=== PATIENT | female | born 2000 | race Caucasian/White ===

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

== ENCOUNTER 2019-01-11 16:50 | Outpatient (REF) | payer MEDICAID, SELFPAY ==
[2019-01-13 12:41] LABS: Chlamydia Result Negative (Negative); GC Result Negative (Negative); Specimen Description CERVIX
== END 2019-01-11 17:10 ==
LOC: LBN 16:50
PROVIDERS: PCP Nurse Practitioner Family; Visit Provider Nurse Practitioner Women's Health
DX: Z11.3 Encounter for screening for infections with a predominantly sexual mode of transmission (principal)
CPT/HCPCS: 87491; 87591

== ENCOUNTER 2019-10-02 13:51 | Outpatient (REF) | payer MEDICAID, SELFPAY ==
[2019-10-02 17:29] LABS: HCT 39.9 % (36.0-46.0); HGB 13.3 g/dL (12.0-15.5); Mean Corp. HGB Concentration 33.3 g/dL (32.0-36.0); Mean Corpuscular Hemoglobin 30.9 pg (27.0-33.0); Mean Corpuscular Volume 92.8 fL (80-95); Mean Platelet Volume 9.6 fL (8.0-11.0); Platelet Count 364 x1000/uL (130-400); RBC Distribution Width 12.5 % (11.7-14.6); White Blood Cell Count 5.21 k/cumm (4.4-10.8)
[2019-10-02 17:45] LABS: Iron 139 ug/dL (50-170); Total Iron Binding Capacity 237 ug/dL (250-450); Transferrin Sat 59 % (15-50)
[2019-10-02 18:09] LABS: Vitamin D 25 Total 28.4 ng/ml (30-100)
[2019-10-02 18:12] LABS: TSH (W/Ref FT4) 1.29 uIU/mL (0.36-3.74); Vitamin B12 440 pg/mL (193-986)
== END 2019-10-02 14:11 ==
LOC: NCHCN 13:51
PROVIDERS: PCP Nurse Practitioner Family; Visit Provider Nurse Practitioner
DX: Z86.2 Personal history of diseases of the blood and blood-forming organs and certain disorders involving the immune mechanism (principal); Z13.21 Encounter for screening for nutritional disorder; Z13.29 Encounter for screening for other suspected endocrine disorder
CPT/HCPCS: 82306; 85027; 82607; 83540; 83550; 84443

== ENCOUNTER 2019-10-18 18:30 | Outpatient (REF) | payer MEDICAID, SELFPAY | END 2019-10-18 18:50 | LOC: LBN 18:30 | PROVIDERS: PCP Nurse Practitioner Family; Visit Provider Nurse Practitioner Women's Health | DX: R30.0 Dysuria (principal) | CPT/HCPCS: 87086; 87480; 87510; 87660 ==

== ENCOUNTER 2020-01-29 16:44 | Outpatient (REF) | payer MEDICAID, SELFPAY ==
[2020-02-03 21:20] LABS: Patient Race White; SARS-CoV-2 RNA Undetected (Undetected); SARS-CoV-2 Specimen Source Nasal
== END 2020-01-29 17:04 ==
LOC: NCHCN 16:44
PROVIDERS: PCP Nurse Practitioner Family; Visit Provider Nurse Practitioner Family
DX: J02.9 Acute pharyngitis, unspecified (principal)
CPT/HCPCS: U0003

== ENCOUNTER 2020-03-27 15:41 | Outpatient (REF) | payer MEDICAID, SELFPAY ==
--- NOTE | 2020-03-27 13:30 | PAPFT_PTH ---
PATIENT: Zoey Gunn LOC: [facility] U#:[id number] AGE/SX: 20/F ROOM: RE03/27/[address]: Dorinda Zamudio NP : 2000 BED: DIS: 03/27/2020 SPEC #: [id number] RECD: 03/27/20 18:25 STATUS: JIMMY FINE #: [id number] BURAK: 03/27/20 13:[address]: Dorinda Zamudio NP DEPT: [facility] Cytology RECD BY: Beatrice White ENTERED: 03/27/20 18:25 SP TYPE: PAPFT OTHR DR: Eusebia Perez Tissues: 1 - CX/ENDOCX FOR PAP SMEARS Procedures: PAP THIN PREP/UVM Screening Comments: [id number] (CHLAMYDIA/GC)
[2020-03-29 07:12] LABS: Chlamydia Result Negative (Negative); GC Result Negative (Negative)
== END 2020-03-27 16:01 ==
LOC: LBN 15:41
PROVIDERS: PCP Nurse Practitioner Family; Visit Provider Nurse Practitioner Women's Health
DX: Z11.3 Encounter for screening for infections with a predominantly sexual mode of transmission (principal); Z12.4 Encounter for screening for malignant neoplasm of cervix
CPT/HCPCS: 87491; 87591; 88142

== ENCOUNTER 2021-04-10 01:57 | Outpatient (CLI) | payer MEDICAID, SELFPAY ==
[2021-04-10 13:02] LABS: Abs Immature Grans 0.02 10^3/uL (0.0-0.06); Absolute Basophil Count 0.03 10^3/uL (0.0-0.2); Absolute Eosinophil Count 0.11 10^3/uL (0.0-0.7); Absolute Lymphocyte Count 1.96 10^3/uL (1.2-3.4); Absolute Monocyte Count 0.54 10^3/uL (0.1-0.8); Absolute Neutrophil Count 6.85 10^3/uL (1.2-6.7); Basophils % 0.3; Eosinophils % 1.2; HCT 40.9 % (36.0-46.0); HGB 13.4 g/dL (11.2-15.7); Immature Grans % 0.2; Lymphocytes % 20.6; MCH 30.1 pg (27.0-33.0); MCHC 32.8 % (32.0-36.0); MCV 91.9 fL (80-95); MPV 8.6 fL (8.0-11.0); Monocytes % 5.7; Nucleated RBC 0 %; Platelet Count 393 10^3/uL (130-400); RBC 4.45 10^6/uL (3.93-5.22); RDW 12.1 % (11.7-14.6); RDW-SD 41.1 fL; WBC 9.51 10^3/uL (4.4-10.8)
[2021-04-10 14:26] LABS: ALT 13 U/L (14-59); AST 11 U/L (15-37); Albumin 4.4 g/dL (3.4-5.0); Alkaline Phosphatase 80 U/L (46-116); Bilirubin, Direct 0.2 mg/dL (0.0-0.2); Bilirubin, Total 0.5 mg/dL (0.2-1.0); C-Reactive Protein 0.11 mg/dL (0.0-0.3); Total Protein 7.5 g/dL (6.4-8.2)
== END 2021-04-10 01:58 | disposition home or self-care (01) ==
LOC: LBO 01:57
PROVIDERS: PCP Nurse Practitioner Family; Visit Provider Internal Medicine Gastroenterology
DX: K50.90 Crohn's disease, unspecified, without complications (principal)
CPT/HCPCS: 36415; 80076; 85025; 86140

== ENCOUNTER 2021-08-05 17:28 | Outpatient (REF) | payer MEDICAID, SELFPAY ==
[2021-08-05 19:23] LABS: HCT 40.1 % (36.0-46.0); HGB 12.9 g/dL (11.2-15.7); MCHC 32.2 % (32.0-36.0); MCV 96 fL (80-95); MPV 9.4 fL (8.0-11.0); Platelet Count 327 10^3/uL (130-400); RBC 4.16 10^6/uL (3.93-5.22); RDW 12.1 % (11.7-14.6); RDW-SD 43.2 fL; WBC 8.19 10^3/uL (4.4-10.8)
[2021-08-05 19:31] LABS: Iron 147 ug/dL (50-170); Total Iron Binding Capacity 258 ug/dL (250-450); Transferrin Sat 57 % (15-50)
== END 2021-08-05 17:29 | disposition home or self-care (01) ==
LOC: NCHCN 17:28
PROVIDERS: PCP Nurse Practitioner Family; Visit Provider Nurse Practitioner Family
DX: Z86.2 Personal history of diseases of the blood and blood-forming organs and certain disorders involving the immune mechanism
CPT/HCPCS: 85027; 83540; 83550

== ENCOUNTER 2021-12-07 22:39 | Emergency (ER) | payer MEDICAID, SELFPAY ==
[2021-12-07 22:43] VITALS: BP 130/78; PULSE 110; RESP 18; TEMP 36.7; O2SAT 100
[2021-12-07 23:06] LABS: Bilirubin Negative (Negative); Blood Negative (Negative); Clarity Clear (Clear); Glucose Negative (Negative); Ketones 40 mg/dL (Negative); Leukocyte Esterase Negative (Negative); Nitrite Negative (Negative); Urobilinogen 0.2 EU/dL (Up TO 0.2); pH 8.5 (5-8)
--- NOTE | 2021-12-07 23:07 | ED.GENADUL_ITS ---
Discharge Plan Disposition Patient Disposition: HOME Condition: Improving Discharge Details Chief Complaint: Nausea/Vomit/Diar Clinical Impression: Nausea & vomiting Primary Care Provider: Eusebia Perez ED Provider: Federico Giron Home Meds and New Rx's Prescriptions: No Action ascorbate calcium (vitamin C) 500 mg tablet 500 mg PO DAILY calcium carb-mag oxide-zinc ox 1 EACH tablet 1 ea PO DAILY melatonin 3 MG tablet 3 mg PO HS montelukast [Singulair] 10 MG tablet 10 mg PO DAILY albuterol sulfate [ProAir HFA] 8.5 GM HFA aerosol inhaler 2 puff Inhalation Q4H PRN fluticasone propionate [Flonase Allergy Relief] 9.9 ML spray,suspension 9.9 ml NS PRN PRN azathioprine [Imuran] 50 mg tablet 150 mg PO DAILY Zyrtec 10 mg capsule 10 mg PO DAILY Discharge Instructions Instructions: Acute Nausea and Vomiting (ED) Additional Instructions: Please take medications as needed. Please follow-up with your primary care physician within the next week. Please return to the emergency department for any worsening symptoms. Medical Decision Making 21-year-old female history of Crohn's disease, presents with nausea vomiting in the setting of drinking heavily last night had multiple shots approximately 10; abdomen soft nontender nondistended afebrile nontoxic however appears uncomfortable, denies lower GI symptomatology or symptoms. Likely component of hangover and gastritis versus mild pancreatitis lower suspicion for appendicitis or cholecystitis, less likely Crohn's flare given history and physical. Will obtain basic labs, fluids antiemetics H2 ashleigh, GI cocktail. Close reassessment disposition likely home pending result 12: 43 patient resting comfortably feeling much better after meds and fluids. No current vomiting tolerating p.o. Home care instructions and return precautions given HPI General Date/Time Provider Initiated Documentation: 12/07/21 22:39 . HPI Narrative: 21-year-old female history of Crohn's disease presents with nausea vomiting over the past several hours, endorses heavy drinking last night had approximately 10 shots of liquor. Denies any diarrhea or urinary symptoms. Endorses that this is different than her Crohn's flares in the past. Related Data Home Medications Medication Instructions Recorded Confirmed albuterol sulfate 90 mcg/actuation 2 puff inhalation Q4H PRN 10/13/17 12/07/21 aerosol inhaler (ProAir HFA) calcium carbonate 334 mg-magnesium 1 ea PO DAILY 10/13/17 12/07/21 oxide 134 mg-zinc oxide 5 mg tablet fluticasone propionate 50 9.9 ml NS PRN PRN 10/13/17 12/07/21 mcg/actuation nasal spray,suspension (Flonase Allergy Relief) melatonin 3 mg tablet 3 mg PO HS 10/13/17 12/07/21 montelukast 10 mg tablet 10 mg PO DAILY 10/13/17 12/07/21 (Singulair) azathioprine 50 mg tablet (Imuran) 150 mg PO DAILY 07/01/18 12/07/21 ascorbate calcium (vitamin C) 500 500 mg PO DAILY 03/27/20 12/07/21 mg tablet cetirizine 10 mg capsule (Zyrtec) 10 mg PO DAILY 08/27/20 12/07/21 Allergies Allergy/AdvReac Type Severity Reaction Status Date / Time No Known Allergies Allergy Verified 12/07/21 22:53 General Stated Complaint: Nausea/Vomit/Diar LADI: 3 Review of Systems Narrative: Review of Systems Constitutional: negative Eyes: negative ENT: negative Cardiovascular: negative Respiratory: negative Gastrointestinal: Abdominal pain nausea vomiting : negative Musculoskeletal: negative Skin: negative Neurologic: negative Psych: negative PFSH All Active Problems (Updated 12/08/21 @ 00:44 by Federico Giron MD) Nausea & vomiting (Acute) Contraception (Acute) Natural family planning/condoms Crohn's disease (Chronic) Medical History Crohns disease managed by PCP Presence of Subdermal Contraceptive Implant (02/07/20) Family History Mother No problems noted. Father No problems noted. Brother No problems noted. Brother No problems noted. Grandmother Diabetes Other Thyroid disease Social History Smoking/Tobacco Use Status: Never Smoking risk assessment performed?: Yes Alcohol Intake: current Alcohol Intake frequency: a few times a month Drug use: Occasionally Substance use type: marijuana Details: before bed Do you feel safe at home: Yes Do you feel safe in your relationship?: Yes Female Reproductive History Menstrual control method: implanted History History 0 Para Hx # Term Pregnancies Multiple births Hx # Pregnancies Ectopic pregnancies AB induced Hx Number of Living Children AB spontaneous Exam Narrative Exam Narrative: Physical Examination General: alert, awake, cooperative, resting comfortably, no acute distress HEENT: normocephalic, atraumatic; PERRL, EOM intact, conjunctiva normal; no nasal discharge; moist mucous membranes, oral and pharyngeal mucosa normal, tolerating secretions Neck: supple, trachea midline; full ROM Chest: normal to inspection Respiratory: normal respiratory effort, speaking in full sentences, clear to auscultation, no wheezing, rales or rhonchi Cardiac: Tachycardia, regular rhythm, S1S2 intact, no murmurs rubs or gallops GI: abdomen soft, non-tender, non-distended; no palpable mass or hepatosplenomegaly Skin: no lesions, rashes or trauma appreciated Neuro: AAOx3, normal speech, moving all extremities Psych: Appropriate mood and affect Course Vital Signs Vital signs: Vital Signs Temperature 36.7 C 12/07/21 22:43 Pulse 110 H 12/07/21 22:43 Respiratory Rate 18 12/07/21 22:43 Blood Pressure 130/78 12/07/21 22:43 Pulse Oximetry 100 12/07/21 22:43 Temperature 36.7 C 12/07/21 22:43 Temperature Source Oral 12/07/21 22:43 Pulse 110 H 12/07/21 22:43 Respiratory Rate 18 12/07/21 22:43 Respiratory Effort 12/07/21 22:49 Blood Pressure 130/78 12/07/21 22:43 Blood Pressure Position Supine 12/07/21 22:43 Pulse Oximetry 100 12/07/21 22:43 Oxygen Delivery Method Room Air 12/07/21 22:43 Oxygen Flow Rate 0 12/07/21 22:43 Comment 12/07/21 22:43 PAWSS Have you Been Recently Intoxicated or Drunk Within the Last 30 days?: Yes Have you Ever Experienced Previous Episodes of Alcohol Withdrawal?: No Have you ever Experienced Withdrawal Seizures?: No Have you ever Experienced Delirium Tremens(DT)s?: No Have you ever undergone Alcohol Rehabilitation Treatment (i.e, inpt ot outpatient treatment programs)?: No Have you ever Experienced Blackouts?: Yes Have you ever Combined Alcohol with other Downers within the last 90 days?: No Have you ever Combined Alcohol with any other Substance of Abuse during the last 90 days?: No Positive Blood Alcohol level on Presentation? [PCS.BAL]: No Evidence of Increased Autonomic Activity (i.e. HR>120, tremor, sweating, agitation, nausea)?: No Result: 2
[2021-12-07 23:13] LABS: Abs Immature Grans 0.06 10^3/uL (0.0-0.06); Absolute Basophil Count 0.03 10^3/uL (0.0-0.2); Basophils % 0.2; Eosinophils % 0.1; HCT 42.1 % (36.0-46.0); Immature Grans % 0.4; Lymphocytes % 7.2; MCH 30.1 pg (27.0-33.0); MCHC 33.3 % (32.0-36.0); MCV 91 fL (80-95); MPV 8.8 fL (8.0-11.0); Monocytes % 2.4; Neutrophils % 89.7; Platelet Count 353 10^3/uL (130-400); RBC 4.65 10^6/uL (3.93-5.22); RDW 11.4 % (11.7-14.6); RDW-SD 38.2 fL; WBC 16.73 10^3/uL (4.4-10.8)
[2021-12-07] MEDS: Famotidine 20 MG/2 ML VIAL IVP (23:14)
[2021-12-07 23:15] LABS: Epithelial Cells Moderate HPF (Negative); RBC 0-2 HPF (0-2); WBC 0-2 HPF (0-5)
[2021-12-07 23:15] LABS: Absolute Eosinophil Count 0.02 10^3/uL (0.0-0.7); Absolute Neutrophil Count 15.01 10^3/uL (1.2-6.7)
[2021-12-07 23:16] LABS: Bacteria Few HPF (Negative); C & S Indicated? No; Crystals Negative HPF (Negative); Mucus Heavy (Negative)
[2021-12-07] MEDS: Ondansetron 4 MG/2 ML VIAL IVP (23:17)
[2021-12-07] MEDS: Normal Saline 1,000 ML 1000 ML IV (23:24)
[2021-12-07 23:33] LABS: ALT 17 U/L (14-59); AST 15 U/L (15-37); Albumin 4.9 g/dL (3.4-5.0); Alkaline Phosphatase 88 U/L (46-116); Anion Gap 14.1 mmol/L (3-11); BUN 11 mg/dL (7-18); Bilirubin, Total 0.9 mg/dL (0.2-1.0); CO2 24.9 mmol/L (21.0-32.0); CREATININE 0.8 mg/dL (0.55-1.02); Calcium 9.8 mg/dL (8.5-10.1); Chloride 99 mmol/L (98-107); Estimated GFR 106.77 (mL/min/1.73m2); Glucose 96 mg/dL (74-106); Lipase 75 U/L (73-393); Potassium 3.5 mmol/L (3.5-5.1); Sodium 138 mmol/L (136-145); Total Protein 8.8 g/dL (6.4-8.2)
[2021-12-08] MEDS: Mylanta Suspension 30 ML CUP PO (00:29)
[2021-12-08] MEDS: Lidocaine 2% Viscous 15 ML CUP PO (00:29)
== END 2021-12-08 00:48 | disposition home or self-care (01) ==
PROVIDERS: Emergency Provider Emergency Medicine; PCP Nurse Practitioner Family
DX: R11.2 Nausea with vomiting, unspecified (principal); R19.7 Diarrhea, unspecified
CPT/HCPCS: 80053; 81025; 83690; 96361; 96374; 96375; 99284; 81003; 81015; 85025; J2405

== ENCOUNTER 2022-10-23 15:22 | Outpatient (REF) | payer MEDICAID, SELFPAY ==
[2022-10-23 18:39] LABS: Abs Immature Grans 0.02 10^3/uL (0.0-0.06); Absolute Basophil Count 0.02 10^3/uL (0.0-0.2); Absolute Eosinophil Count 0.09 10^3/uL (0.0-0.7); Absolute Lymphocyte Count 1.18 10^3/uL (1.2-3.4); Absolute Monocyte Count 0.34 10^3/uL (0.1-0.8); Absolute Neutrophil Count 4.33 10^3/uL (1.2-6.7); Basophils % 0.3; Eosinophils % 1.5; HCT 35.1 % (36.0-46.0); HGB 11.4 g/dL (11.2-15.7); Immature Grans % 0.3; Lymphocytes % 19.7; MCHC 32.5 % (32.0-36.0); MCV 92 fL (80-95); MPV 9.5 fL (8.0-11.0); Monocytes % 5.7; Neutrophils % 72.5; Platelet Count 353 10^3/uL (130-400); RDW 13.2 % (11.7-14.6); RDW-SD 44.6 fL; WBC 5.98 10^3/uL (4.4-10.8)
[2022-10-23 19:06] LABS: Iron 54 ug/dL (50-170); Total Iron Binding Capacity 302 ug/dL (250-450); Transferrin Sat 18 % (15-50)
[2022-10-23 19:11] LABS: ALT 13 U/L (14-59); AST 12 U/L (15-37); Albumin 4.2 g/dL (3.4-5.0); Alkaline Phosphatase 68 U/L (46-116); Anion Gap 11.5 mmol/L (3-11); BUN 8 mg/dL (7-18); Bilirubin, Total 0.8 mg/dL (0.2-1.0); CO2 24.5 mmol/L (21.0-32.0); CREATININE 0.6 mg/dL (0.55-1.02); Calcium 8.8 mg/dL (8.5-10.1); Chloride 104 mmol/L (98-107); Estimated GFR 129.27 (mL/min/1.73m2); Glucose 91 mg/dL (74-106); Sodium 140 mmol/L (136-145); TSH (W/Ref FT4) 0.79 uIU/mL (0.36-3.74); Total Protein 7.6 g/dL (6.4-8.2)
== END 2022-10-23 15:23 | disposition home or self-care (01) ==
LOC: NCHCN 15:22
PROVIDERS: PCP Nurse Practitioner Family; Visit Provider Nurse Practitioner Family
DX: F41.8 Other specified anxiety disorders (principal); R42 Dizziness and giddiness; Z86.2 Personal history of diseases of the blood and blood-forming organs and certain disorders involving the immune mechanism
CPT/HCPCS: 80053; 83540; 83550; 84443; 85025

== ENCOUNTER 2022-10-28 14:07 | Outpatient (REF) | payer MEDICAID, SELFPAY ==
[2022-10-28 20:45] LABS: Bilirubin Negative (Negative); Blood Moderate (Negative); Clarity Sl Cloudy (Clear); Glucose Negative (Negative); Ketones Negative (Negative); Leukocyte Esterase Large (Negative); Nitrite Positive (Negative); Urobilinogen 0.2 mg/dL (Up to 0.2); pH 7.5 (5-8)
[2022-10-28 22:19] LABS: WBC >50 HPF (0-5)
[2022-10-28 22:20] LABS: Bacteria Many HPF (Negative); C & S Indicated? No/Sq. Contamination; Crystals Negative HPF (Negative); Epithelial Cells Many HPF (Negative); Mucus Negative (Negative); Other Cells Few Transitional (Negative)
== END 2022-10-28 14:08 | disposition home or self-care (01) ==
LOC: LBN 14:07
PROVIDERS: PCP Nurse Practitioner Family; Visit Provider Nurse Practitioner Family
DX: N39.9 Disorder of urinary system, unspecified (principal)
CPT/HCPCS: 81003; 81015

== ENCOUNTER 2022-11-24 15:28 | Outpatient (CLI) | payer MEDICAID, SELFPAY ==
[2022-11-24 17:27] LABS: TSH (W/Ref FT4) 0.98 uIU/mL (0.36-3.74)
[2022-11-24 22:08] LABS: FSH 6.6 mIU/mL (See Note); Prolactin 10.8 ng/mL (See Note)
== END 2022-11-24 15:29 | disposition home or self-care (01) ==
LOC: LBO 15:28
PROVIDERS: PCP Nurse Practitioner Family; Visit Provider Nurse Practitioner Women's Health
DX: N91.2 Amenorrhea, unspecified (principal)
CPT/HCPCS: 36415; 83001; 84146; 84443

== ENCOUNTER 2022-12-31 15:08 | Outpatient (REF) | payer MEDICAID, SELFPAY ==
[2022-12-31 16:16] LABS: Abs Immature Grans 0.01 10^3/uL (0.0-0.06); Absolute Basophil Count 0.03 10^3/uL (0.0-0.2); Absolute Eosinophil Count 0.08 10^3/uL (0.0-0.7); Absolute Lymphocyte Count 1.41 10^3/uL (1.2-3.4); Absolute Monocyte Count 0.24 10^3/uL (0.1-0.8); Absolute Neutrophil Count 3.16 10^3/uL (1.2-6.7); Basophils % 0.6; Eosinophils % 1.6; HCT 35.8 % (36.0-46.0); HGB 11.3 g/dL (11.2-15.7); Immature Grans % 0.2; Lymphocytes % 28.6; MCHC 31.6 % (32.0-36.0); MCV 95 fL (80-95); MPV 9.3 fL (8.0-11.0); Monocytes % 4.9; Neutrophils % 64.1; Platelet Count 386 10^3/uL (130-400); RBC 3.77 10^6/uL (3.93-5.22); RDW 13.7 % (11.7-14.6); WBC 4.93 10^3/uL (4.4-10.8)
[2022-12-31 16:41] LABS: ALT 12 U/L (14-59); AST 10 U/L (15-37); Albumin 4.5 g/dL (3.4-5.0); Alkaline Phosphatase 56 U/L (46-116); Anion Gap 10.8 mmol/L (3-11); BUN 9 mg/dL (7-18); Bilirubin, Total 0.5 mg/dL (0.2-1.0); C-Reactive Protein 0.12 mg/dL (0.0-0.3); CO2 23.2 mmol/L (21.0-32.0); CREATININE 0.6 mg/dL (0.55-1.02); Calcium 9.9 mg/dL (8.5-10.1); Chloride 104 mmol/L (98-107); Estimated GFR 129.27 (mL/min/1.73m2); Glucose 79 mg/dL (74-106); Potassium 4.6 mmol/L (3.5-5.1); Sodium 138 mmol/L (136-145); Total Protein 7.8 g/dL (6.4-8.2)
[2023-01-05 08:36] LABS: 6-Thioguanine Nucleotides 200 (235 - 450)
== END 2022-12-31 15:09 | disposition home or self-care (01) ==
LOC: NCHCN 15:08
PROVIDERS: PCP Nurse Practitioner Family; Visit Provider Nurse Practitioner Family
DX: K50.80 Crohn's disease of both small and large intestine without complications (principal); Z79.899 Other long term (current) drug therapy
CPT/HCPCS: 80053; 80299; 85025; 86140

== ENCOUNTER 2023-02-04 11:25 | Outpatient (RCR) | payer MEDICAID, SELFPAY ==
--- NOTE | 2023-02-04 12:00 | HOLTER_ITS ---
APPROVED REPORT Conclusion The 48-hour Holter monitor ordered for palpitations Rhythm throughout was sinus with an average heart rate of 86. Minimum was 64, maximum 137 There were 3 isolated premature ventricular contractions There was 1 atrial premature beat There was no atrial fibrillation, no SVT, no high-grade AV block, no pauses greater than 3 seconds Patient symptoms were reported which had no correlation to any dysrhythmia
== END 2023-02-18 23:59 | disposition home or self-care (01) ==
LOC: CARDOPNVT 11:25
PROVIDERS: PCP Nurse Practitioner Family; Visit Provider Nurse Practitioner Family
DX: R00.2 Palpitations (principal)
CPT/HCPCS: 93225; 93226

== ENCOUNTER 2023-04-01 18:12 | Outpatient (REF) | payer MEDICAID, SELFPAY ==
--- NOTE | 2023-04-01 13:15 | PAPFT_PTH ---
PATIENT: Zoey Gunn LOC: [facility] U#:[id number] AGE/SX: 23/F ROOM: RE04/01/[address]: SHRADDHA CONNOLLY : 2000 BED: DIS: 04/01/2023 SPEC #: [id number] RECD: 04/01/23 18:26 STATUS: JIMMY REQ #: [id number] BURAK: 04/01/23 13:[address]: Shraddha Connolly DEPT: [facility] Cytology RECD BY: Beatrice White Tissues: 1 - CX/ENDOCX FOR PAP SMEARS Procedures: PAP THIN PREP/[facility] Screening Comments: [id number] (CHLAMYDIA/GC)
[2023-04-02 14:57] LABS: Chlamydia Result Negative (Negative); GC Result Negative (Negative)
== END 2023-04-01 18:13 | disposition home or self-care (01) ==
LOC: NCHCN 18:12
PROVIDERS: PCP Nurse Practitioner Family; Visit Provider Nurse Practitioner Family
DX: Z00.00 Encounter for general adult medical examination without abnormal findings (principal); Z12.4 Encounter for screening for malignant neoplasm of cervix; Z11.51 Encounter for screening for human papillomavirus (HPV)
CPT/HCPCS: 87491; 87591; 88142

== ENCOUNTER 2023-12-09 03:09 | Outpatient (CLI) | payer MEDICAID, SELFPAY ==
[2023-12-09 15:22] LABS: Abs Immature Grans 0.01 10^3/uL (0.0-0.06); Absolute Basophil Count 0.02 10^3/uL (0.0-0.2); Absolute Eosinophil Count 0.07 10^3/uL (0.0-0.7); Absolute Lymphocyte Count 1.37 10^3/uL (1.2-3.4); Absolute Neutrophil Count 5.22 10^3/uL (1.2-6.7); Basophils % 0.3 %; HCT 37.4 % (36.0-46.0); HGB 12.5 g/dL (11.2-15.7); Immature Grans % 0.1 %; Lymphocytes % 19.6 %; MCH 32.3 pg (27.0-33.0); MCHC 33.4 % (32.0-36.0); MCV 97 fL (80-95); MPV 8.7 fL (8.0-11.0); Monocytes % 4.3 %; Neutrophils % 74.7 %; Platelet Count 268 10^3/uL (130-400); RBC 3.87 10^6/uL (3.93-5.22); RDW 11.9 % (11.7-14.6); RDW-SD 41.9 fL; WBC 6.99 10^3/uL (4.4-10.8)
[2023-12-09 16:38] LABS: ALT 12 U/L (14-59); AST 16 U/L (15-37); Albumin 3.6 g/dL (3.4-5.0); Alkaline Phosphatase 57 U/L (46-116); Anion Gap 7.7 mmol/L (3-11); BUN 9 mg/dL (7-18); Bilirubin, Total 0.42 mg/dL (0.2-1.0); CO2 26.3 mmol/L (21.0-32.0); CREATININE 0.8 mg/dL (0.55-1.02); Calcium 8.8 mg/dL (8.5-10.1); Chloride 104 mmol/L (98-107); Estimated GFR 105.45 (mL/min/1.73m2); Glucose 87 mg/dL (74-106); Potassium 3.7 mmol/L (3.5-5.1); Sodium 138 mmol/L (136-145); Total Protein 7.7 g/dL (6.4-8.2)
[2023-12-09 16:43] LABS: C-Reactive Protein < 0.50 mg/dL (<or=0.5)
[2023-12-13 11:54] LABS: Tissue Transglutaminase IgA <4.0 CU (<20.0)
[2023-12-14 11:03] LABS: 6-Thioguanine Nucleotides 129 (235 - 450)
== END 2023-12-09 03:10 | disposition home or self-care (01) ==
PROVIDERS: Visit Provider Internal Medicine Gastroenterology
DX: K52.9 Noninfective gastroenteritis and colitis, unspecified (principal)
CPT/HCPCS: 36415; 80053; 80299; 85025; 86140

== ENCOUNTER 2024-06-21 12:10 | Outpatient (CLI) | payer MEDICAID, SELFPAY ==
[2024-06-21 12:41] LABS: Abs Immature Grans 0.03 10^3/uL (0.0-0.06); Absolute Basophil Count 0.02 10^3/uL (0.0-0.2); Absolute Eosinophil Count 0.07 10^3/uL (0.0-0.7); Absolute Lymphocyte Count 1.91 10^3/uL (1.2-3.4); Absolute Monocyte Count 0.38 10^3/uL (0.1-0.8); Absolute Neutrophil Count 4.84 10^3/uL (1.2-6.7); Basophils % 0.3 %; HCT 38.2 % (36.0-46.0); HGB 12.5 g/dL (11.2-15.7); Immature Grans % 0.4 %; Lymphocytes % 26.3 %; MCH 30.7 pg (27.0-33.0); MCHC 32.7 % (32.0-36.0); MCV 94 fL (80-95); MPV 8.8 fL (8.0-11.0); Monocytes % 5.2 %; Neutrophils % 66.8 %; Platelet Count 292 10^3/uL (130-400); RBC 4.07 10^6/uL (3.93-5.22); RDW 13.2 % (11.7-14.6); RDW-SD 45.5 fL; WBC 7.25 10^3/uL (4.4-10.8)
[2024-06-21 12:50] LABS: ALT 16 U/L (14-59); AST 13 U/L (15-37); Albumin 3.7 g/dL (3.4-5.0); Alkaline Phosphatase 61 U/L (46-116); Anion Gap 11.4 mmol/L (3-11); BUN 10 mg/dL (7-18); Bilirubin, Total 0.4 mg/dL (0.2-1.0); CO2 24.6 mmol/L (21.0-32.0); CREATININE 0.8 mg/dL (0.55-1.02); Chloride 104 mmol/L (98-107); Glucose 88 mg/dL (74-106); Potassium 3.7 mmol/L (3.5-5.1); Sodium 140 mmol/L (136-145); Total Protein 7.1 g/dL (6.4-8.2)
[2024-06-21 12:51] LABS: C-Reactive Protein < 0.50 mg/dL (<or=0.5)
== END 2024-06-21 12:11 | disposition home or self-care (01) ==
LOC: LBO 12:10
PROVIDERS: Visit Provider Internal Medicine Gastroenterology
DX: K52.9 Noninfective gastroenteritis and colitis, unspecified (principal)
CPT/HCPCS: 36415; 80053; 85025; 86140

== ENCOUNTER 2024-06-21 12:19 | Outpatient (REF) | payer MEDICAID, SELFPAY ==
[2024-06-22 11:56] LABS: Chlamydia Result Negative (Negative); GC Result Negative (Negative)
== END 2024-06-21 12:20 | disposition home or self-care (01) ==
LOC: LBN 12:19
PROVIDERS: Visit Provider Nurse Practitioner Women's Health
DX: Z11.3 Encounter for screening for infections with a predominantly sexual mode of transmission (principal); Z30.41 Encounter for surveillance of contraceptive pills; Z01.419 Encounter for gynecological examination (general) (routine) without abnormal findings
CPT/HCPCS: 87491; 87591

== ENCOUNTER 2024-07-06 12:52 | Outpatient (REF) | payer MEDICAID, SELFPAY ==
[2024-07-06 19:48] LABS: Iron 42 ug/dL (50-170); Total Iron Binding Capacity 360 ug/dL (250-450); Transferrin Sat 12 % (15-50)
[2024-07-06 20:10] LABS: Ferritin 15 ng/mL (8-252); Folate 4.3 ng/mL (8.6-20.0); TSH (W/Ref FT4) 1.58 uIU/mL (0.36-3.74); Vitamin B12 112 pg/mL (193-986); Vitamin D 25 Total 37 ng/mL (30-100)
[2024-07-09 13:44] LABS: HIV-1/2 Ag & Ab Screen Negative (Negative)
[2024-07-10 10:34] LABS: Hepatitis C Ab w Rflx HCV PCR Negative (Negative)
[2024-07-10 13:15] LABS: Syphilis Serology (RPR) Negative (Negative)
== END 2024-07-06 12:53 | disposition home or self-care (01) ==
LOC: NCHCN 12:52
PROVIDERS: Visit Provider Nurse Practitioner Family
DX: R53.82 Chronic fatigue, unspecified (principal); Z11.3 Encounter for screening for infections with a predominantly sexual mode of transmission
CPT/HCPCS: 82306; 86803; 87389; 82607; 82728; 82746; 83540; 83550; 84443; 86592

== ENCOUNTER 2025-01-16 21:46 | Outpatient (REF) | payer MEDICAID, SELFPAY ==
[2025-01-18 11:28] LABS: Chlamydia Result Negative (Negative); GC Result Negative (Negative)
== END 2025-01-16 21:47 | disposition home or self-care (01) ==
LOC: NCHCN 21:46
DX: Z72.51 High risk heterosexual behavior (principal)
CPT/HCPCS: 87491; 87591